=== PATIENT | male | born 1970 | race Caucasian/White ===

== ENCOUNTER 2017-11-27 19:34 | Emergency (ER) | payer BC ==
[2017-11-27 19:44] VITALS: BMI 27.8
--- NOTE | 2017-11-27 20:05 | DR.GENAD ---
HPI - PCP Primary Care Physician: DR.PAM CALDWELL(SCHOOL PSYCHOLOGY PROFESSOR)/DR.NAIR LELIA - HPI Comment HPI Comment: PAIN GETTING WORSE. FLARE UP [facility] HE WALK A LOT GOING TO THE STORE. HE IS TAKING MEDICATIONS PRESCRIBE BUT STILL HURTING. NO FEVER OR DYSURIA. - Complaint/Symptoms Chief Complaint Doctors Comments: PATIENT HAVE LOWER BACK PAIN GOING INTO LEFT LEG AND GROIN. Chief Complaint:: "SHARP PAIN IN LEFT HIP RADIATES DOWN INTO MY GROIN. I SEEN HER 2 WKS AGO FOR THIS SAME PROBLEM. SHE TOLD ME IT MAY BE A NERVE, GAVE ME MEDICINE BUT IT IS NOT HELPING AT ALL. WALKING AROUND I'M GOOD BUT ITS WHEN I SIT AND THEN TRY TO STAND IT HURTS WORSE. I SOMETIMES HAVE MY LEFT LEG GO NUMB AFTER SITTING FOR A PERIOD OF TIME." Self Treatment fo Chief Complaint: CYCLOBENZAPR 10MG PO HS. TRAMADOL 50MG PO Q6HRS PRN. DICLOFENAC 100MG PO DAILY - Nurses notes reviewed Nurses Notes Review: Yes - Source History Provided: Patient - Mode of Arrival Mode of Arrival: Ambulatory - Timing Onset of Chief Complaint: 11/11/17 Came on: Suddenly - Duration Duration: Constant Duration: Days - Severity Severity: Moderate PMH - PMH Past Medical History: Yes Past Medical History: Kidney Stones Past Surgical History: Yes Surgical History: Lithotripsy - Family History History of Family Medical Conditions: No - Social History Does patient currently use any type of tobacco product: No Have you used tobacco products in the last 12 months: No Type of Tobacco Use: None Does any household member use tobacco: No Alcohol Use: Occasionally Do you use any recreational Drugs:: No Lives With: Spouse Lives Where: Home - infectious screening Have you traveled outside the country in the last 6 months?: No Isolation: Standard ROS - Review of Systems Constitutional: No Symptoms Reported Eyes: No Symptoms Reported ENTM: No Symptoms Reported Respiratoy: No Symptoms Reported Cardiovascular: No Symptoms Reported Gastrointestinal/Abdominal: No Symptoms Reported Genitourinary: No Symptoms Reported. negative: Dysuria, Frequency, Hematuria Neurological: Other (LEFT GROIN PAIN) Musculoskeletal: Back Pain, Muscle Pain, Back Integumentary: No Symptoms Reported Hematologic/Lymphatic: No Symptoms Reported Endocrine: No Symptoms Reported All Other Systems: Reviewed and Negative PE - Vital Signs Vitals: Temperature 99.4 F Pulse Rate [Left Brachial] 54 Pulse Rate 71 Respiratory Rate 18 Blood Pressure [Left Arm] 119/68 Blood Pressure 116/69 O2 Sat by Pulse Oximetry 96 - General Limitations: No Limitations General Appearance: Alert - Head Head Exam: Normal Inspection - Eyes Eye exam: Normal Appearance - ENT ENT Exam: Normal External Ear Exam External Ear Exam: Normal External Inspection TM/Canal Exam: Bilateral Normal Nose Exam: Normal Nose Exam Mouth Exam: Normal Inspection Throat Exam: Normal Inspection - Chest Chest Inspection: Symmetric Chest Wall Rise - Respiratory Respiratory Exam: Normal Lung Sounds Bilat Respiratory Exam: Bilateral Clear to Auscultation - Cardiovascular Cardiovascular Exam: Regular Rate, Normal Rhythm, Normal Heart Sounds - Abdominal Exam Abdominal Exam: Normal Bowel Sounds, Soft, Tenderness - Extremities Extremities Exam: Normal Inspection - Back Back Exam: Paraspinal Tenderness, Vertebral Tenderness - Neurologic Neurological Exam: Alert, Oriented X3 - Psychiatric Psychiatric Exam: Normal Affect, Normal Mood - Skin Skin Exam: Normal Color MDM - Differential Diagnosis Differential Diagnosis: LOW BACK PAIN, LET GROIN PAIN. Course - Treatment Treatment: SEE ORDERS. - Education/Counseling Education/Counseling: Patient, Education Educated On: Diagnosis, Needs for Follow Up ROR - XRAY XRAY Interpreted by: Radiologist XRAY Findings: REPORT DISCUSS WITH PATIENT. - Diagnosis Discharge Problem: Low back pain Qualifiers: Chronicity: acute Back pain laterality: bilateral Sciatica presence: with sciatica Sciatica laterality: sciatica of left side Qualified Code(s): M54.42 - Lumbago with sciatica, left side Sciatica Qualifiers: Laterality: left Qualified Code(s): M54.32 - Sciatica, left side - Discharge Plan Disposition: HOME, SELF-CARE Condition: Stable - Follow ups/Referrals Follow ups/Referrals: NFD,None [Primary Care Provider] - 11/29/17 - Instructions Instructions: Sciatica, [id number], Back Pain, Adult, [id number] Additional Instructions: RETURN TO ED IF WORSE. CONTINUE WITH MEDS AT HOME.
[2017-11-27] MEDS ORDERED: NORFLEX INJ ONE (20:10)
[2017-11-27] MEDS ORDERED: TORADOL 60 MG VIAL ONE (20:10)
[2017-11-27] MEDS ORDERED: TORADOL 60 MG VIAL IM ONE (20:12)
[2017-11-27] MEDS ORDERED: NORFLEX INJ IM ONE (20:12)
--- NOTE | 2017-11-27 21:06 | CT ---
CT LUMBAR SPINE WITHOUT CLINICAL HISTORY: 47-year-old male with pain in the left hip radiating to the groin. COMPARISON: None. TECHNIQUE: Multiple, noncontrasted axial CT images were obtained from the thoracolumbar junction to the sacrum and reconstructed in the sagittal and coronal planes. FINDINGS: The most caudad, fully-formed intervertebral disc will be labeled L5-S1 for the purpose of this dictation. Straightening of the lumbar lordosis as imaged. There is preservation of vertebral ozzy dy and disc space height. The posterior elements are normal in appearance and alignment. No acute fra cture or malalignment. T12-L1: No central canal or neural foraminal stenosis. L1-L2: Subtle degenerative retrolisthesis without central canal stenosis. Mild bilateral neural dick inal stenosis secondary to moderate facet hypertrophy and disc bulge. L2-L3: Small disc bulge with moderate facet hypertrophy without central canal or neural foraminal felipa nosis. L3-L4: Large disc bulge with moderate facet hypertrophy. No central canal stenosis. Mild bilateral ne ural foraminal stenosis. L4-L5: Large disc bulge with severe facet hypertrophy without significant central canal stenosis. Mil d to moderate bilateral neural foraminal stenosis. L5-S1: Small disc bulge with moderate facet hypertrophy without significant central canal stenosis. N o neural foraminal stenosis. Diverticulosis without CT evidence of diverticulitis. Paraspinous soft tissues otherwise unremarkable . IMPRESSION: 1. No significant central canal or neural foraminal stenosis. Consider nonemergent common outpatient MR lumbar spine for further evaluation. 2. Mild multilevel disc degeneration and spondyloarthropathy without acute fracture or malalignment. Reported By:
[2017-11-27 21:54] VITALS: BP 119/68
== END 2017-11-27 21:54 | disposition home or self-care (01) ==
LOC: ER 19:34
DX: M54.42 Lumbago with sciatica, left side (principal); M54.32 Sciatica, left side
CPT/HCPCS: 72131; 96372; 99282; 99283; J1885; J2360